=== PATIENT | male | born 1935 | race Caucasian/White ===

== ENCOUNTER 2017-01-05 09:23 | Day surgery (SDC) | payer MEDICARE, BC ==
[2017-01-05] VITALS (7 sets, daily range): BP systolic 135–158; BP diastolic 76–89
[~2017-01-05] VITALS: Ht 182.9 cm; Wt 95.3 kg
--- NOTE | 2017-01-05 09:11 | Pre-Procedure Note/Attestation ---
Pre-Procedure Note/Attestation Complete Prior to Procedure Planned Procedure: right - Removal of cataract and placement of intraocular lens, right eye Procedure Narrative: Removal of cataract and placement of intraocular lens, right eye Indications for Procedure Pre-Operative Diagnosis: Cataract, nuclear, right eye Attestation I attest that I discussed the nature of the procedure; its benefits; risks and complications; and alternatives (and the risks and benefits of such alternatives ), prior to the procedure, with the patient (or the patient's legal visitor services representative). I attest that, if there was a reasonable possibility of needing a blood transfusion, the patient (or the patient's legal visitor services representative) was given the [place] [facility] standardized written summary, pursuant to the [place] Blood Safety Act ([place] Health and Safety Code # 1645, as amended). I attest that I re-evaluated the patient just prior to the surgery and that there has been no change in the patient's H&P, except as documented below: Kev Barnhart MD Jan 05, 2017 09:11
[~2017-01-05 09:23] MED LIST: Flurbiprofen 0.03% Opth Sol 2.5ml RIGHT EYE SCH; Pred Forte 1% Opth Susp 1ml RIGHT EYE ONE
[2017-01-05] MEDS ORDERED: Phenylephrine 10% Opth Soln 5ml ONE (09:31)
[2017-01-05] MEDS ORDERED: Cyclopentolate 1% Opth Sol 2ml ONE (09:31)
[2017-01-05] MEDS ORDERED: Ciprofloxacin Opth Soln 2.5ml ONE (09:31)
[2017-01-05] MEDS ORDERED: Akten 3.5% 1ml Btl ONE (09:32)
[2017-01-05] MEDS ORDERED: Pred Forte 1% Opth Susp 1ml ONE (09:40)
[2017-01-05] MEDS: Akten 3.5% 1ml Btl RIGHT EYE SCH ×3 (09:42→09:54)
[2017-01-05] MEDS: Ciprofloxacin Opth Soln 2.5ml RIGHT EYE SCH ×3 (09:43→09:54)
[2017-01-05] MEDS: Cyclopentolate 1% Opth Sol 2ml RIGHT EYE SCH ×3 (09:43→09:54)
[2017-01-05] MEDS: Phenylephrine 10% Opth Soln 5ml RIGHT EYE SCH ×3 (09:43→09:54)
[2017-01-05] MEDS ORDERED: Fluorescein Strips ONE (10:02)
[2017-01-05] MEDS ORDERED: Timolol 0.5% Op Soln 2.5ml ONE (10:02)
[2017-01-05] MEDS ORDERED: Lidocaine 1% MPF 10mg/ml 5ml ONE (10:02)
[2017-01-05] MEDS ORDERED: Maxitrol Opth Oint 3.5gm ONE (10:02)
[2017-01-05] MEDS ORDERED: BSS 500ml btl ONE (10:02)
[2017-01-05] MEDS ORDERED: Dexamethasone 4mg/ml vial ONE (10:03)
[2017-01-05] MEDS ORDERED: Carbachol 0.01% Op Soln 1.5ml vial ONE (10:03)
[2017-01-05] MEDS ORDERED: Tetracaine 0.5% Opth 4ml Soln ONE (10:03)
[2017-01-05] MEDS ORDERED: Povidone-Iodine 5% opth solution ONE (10:03)
[2017-01-05] MEDS ORDERED: Lidocaine 4% Amp ONE (10:03)
[2017-01-05] MEDS ORDERED: Bupivacaine 0.75% 30ml vial INJ ONE (10:04)
[2017-01-05] MEDS ORDERED: Sodium Hyaluronate 10 mg/ml 0.85ml ONE (10:04)
[2017-01-05] MEDS ORDERED: EPINEPHrine 1mg/1ml Amp ONE (10:04)
[2017-01-05] MEDS ORDERED: BSS 15ml BTL ONE (10:04)
[2017-01-05] MEDS ORDERED: ZETIA10 MG ORAL (10:05)
[2017-01-05] MEDS ORDERED: DOXAZOSIN MESYLA1 MG ORAL (10:05)
[2017-01-05] MEDS ORDERED: ALLOPURINOL100 M1 ORAL (10:05)
[2017-01-05] MEDS ORDERED: NORVASC2.5 MG ORAL (10:05)
[2017-01-05] MEDS ORDERED: SIMVASTATIN5 MG ORAL (10:05)
[2017-01-05] MEDS ORDERED: METOPROLOL TART25 MG ORAL (10:05)
[2017-01-05] MEDS ORDERED: PROSCAR5 MG ORAL (10:05)
[2017-01-05] MEDS ORDERED: NEXIUM2.5 MG ORAL (10:08)
[2017-01-05] MEDS ORDERED: ASPIR 8181 MG ORAL (10:08)
[2017-01-05] MEDS ORDERED: LR 1000ml ONE (11:30)
[2017-01-05] MEDS ORDERED: Sterile Water Irrig 1000ml IRRIG ONE (11:30)
[2017-01-05] MEDS ORDERED: NS Irrig 1000ml ONE (11:30)
[2017-01-05] MEDS ORDERED: Propofol 200mg/20ml IV ONE (11:30)
[2017-01-05] MEDS ORDERED: Midazolam 2mg/2ml Inj ONE (11:30)
[2017-01-05] MEDS ORDERED: LR 1000ml 1,000 ML IVLG SCH (11:53)
--- NOTE | 2017-01-05 11:53 | Anethesia Preoperative Eval ---
Anesthesia Pre-op PMH/ROS General Date of Evaluation: Jan 05, 2017 Time of Evaluation: 11:12 Anesthesiologist: Nadiya ASA Score: ASA 3 Mallampati Score Class I : Soft palate, uvula, fauces, pillars visible Class II: Soft palate, uvula, fauces visible Class III: Soft palate, base of uvula visible Class IV: Only hard plate visible Mallampati Classification: Class II Surgeon: Bronwyn Diagnosis: R eye cataract Surgical Procedure: R eye cataract extracton Anesthesia History: none Family History: no anesthesia problems Allergies: Coded Allergies: No Known Allergies (Unverified , 09/14/11) Medications: see eMAR Past Medical History Cardiovascular: Reports: HTN, other - sick sinus syndrom pacer in place, Denies: CAD, [place], valve dz, arrhythmia Pulmonary: Denies: asthma, COPD, JAYLEN, other Gastrointestinal/Genitourinary: Reports: GERD, CRI - s/p one side nephrectomy, Denies: ESRD, other Neurologic/Psychiatric: Denies: dementia, CVA, depression/anxiety, TIA, other Endocrine: Denies: DM, hypothyroidism, steroids, other HEENT: Reports: cataract (L), cataract (R), Denies: glaucoma, [place] (L), [place] (R), other Hematology/Immune: Denies: anemia, DVT, bleeding disorder, other Musculoskeletal/Integumentary: Denies: OA, RA, DJD, DDD, edema, other PMH Narrative: as above PSxH Narrative: L cataract Pacemaker placement, total and partial nephrectomy Anesthesia Pre-op Phys. Exam Physician Exam Last Vital Signs Date Time Temp Pulse Resp B/P (MAP) Pulse Ox O2 Delivery O2 Flow Rate FiO2 01/05/17 09:53 97.6 62 18 149/89 94 Room Air Constitutional: NAD Cardiovascular: RRR Respiratory: CTA Gastrointestinal: S/NT/ND Airway Exam Mallampati Score: Class II MO: limited Neck: stiff ROM: limited Teeth: missing Dentures: no upper, no lower Anesthesia Pre-op A/P Labs see chart Risk Assessment & Plan Assessment: ASA3 Plan: MAC Status Change Before Surgery: No Pre-Antibiotics Drug: none KIERRA JOYNER M.D. Jan 05, 2017 11:53
[2017-01-05] MEDS ORDERED: fentaNYL 100 mcg/2 mL IV PRN (12:00)
[2017-01-05] MEDS ORDERED: DiphenhydrAMINE 50mg/ml Inj IVP PRN (12:00)
--- NOTE | 2017-01-05 12:21 | Brief Operative Note ---
Immediate Post Operative Note Operative Note Pre-op Diagnosis: Cataract, nuclear, right eye Procedure: phaco pc iol, OD Post-op Diagnosis: same as pre-op Surgeon: Soren Barnhart MD MS Anesthesiologist: Dr Hearn Anesthesia: local, MAC Specimen: none Complications: none Fluids: iv NS Estimated Blood Loss: minimal Drains: none Implant(s) used?: Yes - jose [id number] 17.5 Kev Barnhart MD Jan 05, 2017 12:21
--- NOTE | 2017-01-05 12:22 | Discharge Instructions ---
Discharge Instructions Discharge Instructions Follow Up Orders Keep shield on at all times except to place eye drops Continue preop eye drops Followup tomorrow in Dr Barnhart's office at12.15 For Congestive Heart Failure Reminder Report to your physician any weight gain of 5 pounds or more in one week. Kev Barnhart MD Jan 05, 2017 12:22
--- NOTE | 2017-01-05 12:24 | Immediate Post-Op Evaluation ---
Immediate Post-Op Evalulation Immediate Post-Op Evalulation Procedure: R eye cataract extraction with IOL Date of Evaluation: Jan 05, 2017 Time of Evaluation: 12:23 IV Fluids: 600 Blood Products: none Estimated Blood Loss: none Urinary Output: none Blood Pressure Systolic: 160 Blood Pressure Diastolic: 68 Pulse Rate: 59 Respiratory Rate: 20 O2 Sat by Pulse Oximetry: 99 Temperature (Fahrenheit): 97.9 Pain Score (1-10): 1 Nausea: No Vomiting: No Complications none Patient Status: awake, patent, none Hydration Status: adequate KIERRA JOYNER M.D. Jan 05, 2017 12:24
--- NOTE | 2017-01-05 22:00 | Operative Note - Dictated ---
DATE OF OPERATION: 01/05/2017 SURGEON: Kev Barnhart M.D. BIOCHEMIST SURGEON: None. ANESTHESIOLOGIST: Torrey Hearn M.D. ANESTHESIA: Local/standby/monitored anesthesia care. PREOPERATIVE DIAGNOSIS: Cataract, nuclear, right eye. POSTOPERATIVE DIAGNOSIS: Cataract, nuclear, right eye. PROCEDURE: 1. Phacoemulsification of cataract, right eye. 2. Placement of posterior chamber intraocular lens, right eye (model [id number], power 17.5). SPECIMENS: None. COMPLICATIONS: None. Indications For Surgery: The patient has had a painless progressive decrease in the visual acuity in the right eye secondary to cataract. The patient understands the risks of surgery including infection, bleeding, need for further surgery, loss of vision, no improvement in vision, loss of the eye, loss of life, glaucoma, retinal detachment, understands these risks and elects to proceed with surgery. FINDINGS: The patient had a +3 nuclear sclerotic cataract. Operative Note: After informed consent was obtained, the patient was brought to the operating room and placed in supine position. Cardiac and respiratory monitors were attached. A time-out was performed and all criteria were met and everyone in the room agreed. The right eye was then draped and prepped in sterile manner for ocular surgery. A lid speculum was placed in the eye. A 1% lidocaine preservative-free was injected at the approximate 9 o'clock limbus. A conjunctival peritomy from approximately 8:30 to 9:30 was made and dissected posteriorly. Hemostasis was maintained with bipolar cautery. A 2.6 mm limbal incision was made centered at approximately 9 o'clock and dissected anteriorly. A paracentesis was made at approximately 12 o'clock and Shugarcaine was injected into the anterior chamber followed by Healon. The anterior chamber was then entered using a 2.6 mm keratome through the limbal incision. An anterior capsulorrhexis was then performed. Hydrodissection and hydrodelineation of the lens was then performed. The lens was then phacoemulsified using divide and conquer four-quadrant technique. Residual cortical material was then aspirated. Healon was injected into the anterior chamber and capsular bag. The lens was taken from its package and placed into the cartridge and the tip of the cartridge was placed through the limbal incision. The lens was injected into the capsular bag and centered nicely with a [place] hook. Healon was aspirated from the anterior chamber and capsular bag. One 10-0 nylon interrupted suture was placed through the limbal incision and the knot was rotated and buried. All wounds were checked and found to be watertight. The conjunctiva was then closed with forceps cautery. The lid speculum and drapes were removed from the eye and drops of Pred Forte and ciprofloxacin were applied to the eye followed by Maxitrol ointment and then a shield. The patient tolerated the procedure well and left the operating room in awake, alert, and stable condition. Kev Barnhart M.D. DR: HEBERT JOB#: [id number] CC:
== END 2017-01-05 13:30 | disposition home or self-care (01) ==
LOC: SUR 09:23
DX: H25.11 Age-related nuclear cataract, right eye (principal); K40.90 Unilateral inguinal hernia, without obstruction or gangrene, not specified as recurrent; Z90.5 Acquired absence of kidney; Z95.0 Presence of cardiac pacemaker; I49.5 Sick sinus syndrome; K21.9 Gastro-esophageal reflux disease without esophagitis; I12.9 Hypertensive chronic kidney disease with stage 1 through stage 4 chronic kidney disease, or unspecified chronic kidney disease; N18.9 Chronic kidney disease, unspecified
CPT/HCPCS: 66984; J0171; J1100; J2250; J2704; J7120; V2632; 94003; 94150